=== PATIENT | male | born 1990 | race African-American/Black ===

== ENCOUNTER 2020-02-14 06:26 | Emergency (ER) | payer BC ==
[2020-02-14 07:11] LABS: ABSOLUTE EOSINOPHILS # (AUTO) 0.1 10^3/uL (0.0-0.6); ABSOLUTE LYMPHOCYTES (AUTO) 2.9 10^3/uL (0.5-4.7); ABSOLUTE MONOCYTES (AUTO) 0.4 10^3/uL (0.1-1.4); ABSOLUTE NEUT (AUTO) 1.4 10^3/uL (1.7-8.2); BASOPHILS % (AUTO) 0.8 % (0-2); EOSINOPHILS % (AUTO) 2.7 % (0-6); HEMATOCRIT 43.7 % (37.9-51.0); HEMOGLOBIN 14.9 g/dL (13.5-17.0); LYMPHOCYTES % (AUTO) 60.2 % (13-45); MEAN CORPUSCULAR HEMOGLOBIN 31.4 pg (27.0-33.4); MEAN CORPUSCULAR HGB CONC 34.2 g/dL (32.0-36.0); MEAN CORPUSCULAR VOLUME 92 fl (80-97); PLATELET COUNT 166 10^3/uL (150-450); RED BLOOD COUNT 4.76 10^6/uL (4.35-5.55); RED CELL DISTRIBUTION WIDTH 13.3 % (11.5-14.0); SEGMENTED NEUTROPHILS % (AUTO) 28.3 % (42-78); TOTAL CELLS COUNTED % (AUTO) 100 %; WHITE BLOOD COUNT 4.8 10^3/uL (4.0-10.5)
[2020-02-14 07:19] LABS: APPEARANCE,URINE CLEAR; BILIRUBIN,URINE NEGATIVE (NEGATIVE); COLOR,URINE YELLOW; GLUCOSE, URINE NEGATIVE (NEGATIVE); KETONES,URINE TRACE mg/dL (NEGATIVE); LEUKOCYTE ESTERASE,URINE NEGATIVE (NEGATIVE); NITRITE,URINE NEGATIVE (NEGATIVE); PROTEIN,URINE NEGATIVE (NEGATIVE); URINE SPECIFIC GRAVITY 1.031
[2020-02-14 07:34] LABS: ALBUMIN 4.4 g/dL (3.5-5.0); ALKALINE PHOSPHATASE 94 U/L (38-126); ANION GAP 6 (5-19); ASPARTATE AMINO TRANSFERASE 21 U/L (17-59); BILIRUBIN,TOTAL 0.5 mg/dL (0.2-1.3); BLOOD UREA NITROGEN 14 mg/dL (7-20); CALCIUM 9.6 mg/dL (8.4-10.2); CARBON DIOXIDE 27 mmol/L (22-30); CHLORIDE 106 mmol/L (98-107); GLUCOSE 104 mg/dL (75-110); POTASSIUM 3.9 mmol/L (3.6-5.0); TOTAL PROTEIN 7.1 g/dL (6.3-8.2)
[2020-02-14] MEDS ORDERED: KETOROLAC TROMETHAMINE INJ/PF 30 MG/1 ML SDV IV ONE (08:21)
--- NOTE | 2020-02-14 08:36 | ER Document Report ---
ED GI/ - General Chief Complaint: Back Pain Stated Complaint: FLANK PAIN Time Seen by Provider: 02/14/20 08:07 Notes: Patient is a 29-year-old male presents emergency department with a chief complaint of right flank pain. Patient reports he has had a gradual onset of right flank pain for 2 days. Patient reports intermittent in nature. Patient denies urinary symptoms, nausea, vomiting, diarrhea, fever or abdominal pain. Patient states he does not have any trouble urinating and does not have any urinary symptoms. Patient reports he does have a history of a kidney stone years ago and that the pain feels very similar. Patient denies recent injury or fall. Patient reports the right flank pain is worse when taking a deep breath. Denies cough, runny nose or ear pain. - Related Data Allergies/Adverse Reactions: No Known Allergies Allergy (Unverified 02/14/20 06:37) Past Medical History - General Information source: Patient - Social History Smoking Status: Current Every Day Smoker Chew tobacco use (# tins/day): No Frequency of alcohol use: None Drug Abuse: None Lives with: Family Family History: None - Past Medical History Cardiac Medical History: Reports: None Pulmonary Medical History: Reports: None EENT Medical History: Reports: None Neurological Medical History: Reports: None Endocrine Medical History: Reports: None Renal/ Medical History: Reports: Hx Kidney Stones Malignancy Medical History: Reports None GI Medical History: Reports: None Musculoskeletal Medical History: Reports None Skin Medical History: Reports None Psychiatric Medical History: Reports: None Traumatic Medical History: Reports: None Infectious Medical History: Reports: None Surgical Hx: Negative Review of Systems - Review of Systems Constitutional: No symptoms reported EENT: No symptoms reported Cardiovascular: No symptoms reported Respiratory: No symptoms reported Gastrointestinal: No symptoms reported Genitourinary: See HPI Male Genitourinary: No symptoms reported Musculoskeletal: No symptoms reported Skin: No symptoms reported Hematologic/Lymphatic: No symptoms reported Neurological/Psychological: No symptoms reported Physical Exam - Vital signs Vitals: Temp Pulse Resp BP Pulse Ox 97.6 F 63 18 118/76 100 02/14/20 06:39 02/14/20 06:39 02/14/20 06:39 02/14/20 06:39 02/14/20 06:39 Interpretation: Normal - Notes Notes: GENERAL: Well-appearing, well-nourished and in no acute distress. HEAD: Atraumatic, normocephalic. EYES: Pupils equal round and reactive to light, extraocular movements intact, sclera anicteric, conjunctiva are normal. ENT: Nares patent, oropharynx clear without exudates. Moist mucous membranes. NECK: Normal range of motion, supple without lymphadenopathy or JVD. LUNGS: Breath sounds clear to auscultation bilaterally and equal. No wheezes rales or rhonchi. HEART: Regular rate and rhythm without murmurs, rubs or gallops. ABDOMEN: Soft, nontender, normoactive bowel sounds. No guarding, no rebound. No masses appreciated. BACK: No cervical, thoracic, lumbar midline tenderness. No saddle anesthesia, normal distal neurovascular exam. Right CVA tenderness. GENITOURINARY: Deferred. EXTREMITIES: Normal range of motion, no pitting or edema. No clubbing or cyanosis. NEUROLOGICAL: Cranial nerves II through XII grossly intact. Normal speech, normal gait. PSYCH: Normal mood, normal affect. SKIN: Warm, Dry, normal turgor, no rashes or lesions noted. Course - Re-evaluation Re-evalutation: 02/14/20 08:36 Patient is nontoxic-appearing. Patient resting comfortably on stretcher. Patient complains of right flank pain that is intermittent in nature. Patient reports he does have a history of kidney stones and that this feels the same. Will order a CT scan. Lab work was unremarkable, patient does not have a urin mariajose tract infection or alteration electrolytes. Will give patient IV Toradol. Patient's not tachycardic, hypotensive or febrile. 02/14/20 09:33 CT scan revealed a 2 mm left lower calyx stone in the kidney. Patient's pain is primarily on the right. Patient does not have any signs of urinary tract infection at this time. Patient reports the Toradol did help with his discomfort and patient is nontoxic-appearing and in no acute distress currently. Patient continues to deny abdominal pain. We will continue NSAIDs at home, rest, patient was given strict return precautions. - Vital Signs Vital signs: Temp Pulse Resp BP Pulse Ox 97.6 F 63 18 118/76 100 02/14/20 06:39 02/14/20 06:39 02/14/20 06:39 02/14/20 06:39 06/22/20 06:39 - Laboratory Result Diagrams: 02/14/20 06:47 02/14/20 06:47 Laboratory results interpreted by me: 02/14/20 02/14/20 06:47 06:47 Lymph % (Auto) 60.2 H Absolute Neuts (auto) 1.4 L Seg Neutrophils % 28.3 L Urine Ketones TRACE H Urine Urobilinogen 4.0 H Urine Ascorbic Acid 40 H 02/14/20 09:33 Patient does not have leukocytosis, anemia or alteration electrolytes. Kidney function is normal. Patient does not have leukocytes or nitrates in the urine. Negative for blood in urine. Laboratory 02/14/20 02/14/20 02/14/20 06:47 06:47 06:47 WBC 4.8 RBC 4.76 Hgb 14.9 Hct 43.7 MCV 92 MCH 31.4 MCHC 34.2 RDW 13.3 Plt Count 166 Lymph % (Auto) 60.2 H Norton % (Auto) 8.0 Eos % (Auto) 2.7 Baso % (Auto) 0.8 Absolute Neuts (auto) 1.4 L Absolute Lymphs (auto) 2.9 Absolute Monos (auto) 0.4 Absolute Eos (auto) 0.1 Absolute Basos (auto) 0.0 Seg Neutrophils % 28.3 L Sodium 138.8 Potassium 3.9 Chloride 106 Carbon Dioxide 27 Anion Gap 6 BUN 14 Creatinine 1.02 Est GFR ( Amer) > 60 Est GFR (MDRD) Non-Af > 60 Glucose 104 Calcium 9.6 Total Bilirubin 0.5 Direct Bilirubin 0.0 Neonat Total Bilirubin Not Reportable Neonat Direct Bilirubin Not Reportable Neonat Indirect Bili Not Reportable AST 21 ALT 13 Alkaline Phosphatase 94 Total Protein 7.1 Albumin 4.4 Urine Color YELLOW Urine Appearance CLEAR Urine pH 5.0 Ur Specific Hammond 1.031 Urine Protein NEGATIVE Urine Glucose (UA) NEGATIVE Urine Ketones TRACE H Urine Blood NEGATIVE Urine Nitrite NEGATIVE Urine Bilirubin NEGATIVE Urine Urobilinogen 4.0 H Ur Leukocyte Esterase NEGATIVE Urine WBC (Auto) 2 Urine RBC (Auto) 1 U Hyaline Cast (Auto) 1 Squamous Epi Cells Auto <1 Urine Mucus (Auto) MANY Urine Ascorbic Acid 40 H - Diagnostic Test Radiology reviewed: Reports reviewed Radiology results interpreted by me: 02/14/20 09:33 Abdomen/Pelvis CT 02/14/20 08:20 IMPRESSION: No acute intra-abdominal abnormality. Discharge - Discharge Clinical Impression: Right flank pain, Left renal stone Condition: Stable Disposition: HOME, SELF-CARE Additional Instructions: *Today you were seen emergency department for right flank pain, this is right mid back pain. We did do a CAT scan which showed a small kidney stone on the left. The stone was not located in the ureter which is the tube that connects the kidney to the bladder. I am prescribing you an anti-inflammatory called Toradol. Take this as needed for pain. Please rest and drink plenty fluids over the next few days. *Please return the emergency department if your symptoms worsen or change to include fever, difficulty urinating, blood in the urine, vomiting, abdominal pain or chest pain. KIDNEY STONE: You are passing or have passed a kidney stone. These stones are usually due to increased calcium or uric acid concentrations in your urine. Stones within the kidney itself are not painful. The pain occurs as the stone leaves the kidney to pass down the long tube, called the ureter, leading to the bladde r. If the stone is small, it will usually pass by itself. Most patients can pass the stone at home. You will usually receive medications for pain, nausea or vomiting, and sometimes a medication to assist in passing the kidney stone. However, if the pain is very severe or if vomiting prevents you from taking oral pain medications, you may need to return for further treatment. Drink three or four quarts of fluids per day. You will be given pain medication (if needed) and urine strainers. Strain all your urine to see if the stone passes. If your doctor has asked you to bring the stone in for analysis, return with the stone once it has passed. Return if pain or vomiting become severe, if you develop a high fever, if you are unable to pass your urine, or if other unusual symptoms occur. TORADOL INJECTION: You have been given an injection of ketorolac tromethamine (Toradol). This is an excellent, safe drug for pain control. It also has potent antiinflammatory action. You should have significant pain relief within about one hour. Toradol is not addicting and is non-sedating. It does not interfere with driving or work. Call or return if you develop itching, hives, shortness of breath, or rash. Prescriptions: Ketorolac Tromethamine [Toradol 10 mg Tablet] 10 mg PO Q8HP PRN #15 tablet PRN Reason: Forms: Return to Work Referrals: [facility] [Provider Group] - Follow up as needed PADMA FARNSWORTH MD [NO LOCAL MD] - Follow up as needed
--- NOTE | 2020-02-14 09:02 | RADIOLOGY REPORT (SQ) ---
EXAM DESCRIPTION: CT ABD/PELVIS NO ORAL OR IV IMAGES COMPLETED DATE/TIME: 02/14/2020 8:33 am REASON FOR STUDY: right flank, r/o kidney stone COMPARISON: None. TECHNIQUE: CT scan of the abdomen and pelvis performed without intravenous or oral contrast. Images reviewed with lung, soft tissue, and bone windows. Reconstructed coronal and sagittal MPR images revi ewed. All images stored on PACS. All CT scanners at this facility use dose modulation, iterative reconstruction, and/or weight based d osing when appropriate to reduce radiation dose to as low as reasonably achievable (ALARA). [facility]: Dose Right [facility]: CareDose [facility]: Dose Right [facility]: Teradose 4D [facility]: Smart Compression Kinetics RADIATION DOSE: CT Rad equipment meets quality standard of care and radiation dose reduction techniq ues were employed. CTDIvol: 5.3 mGy. DLP: 288 mGy-cm. LIMITATIONS: None. FINDINGS: LOWER CHEST: No significant findings. No nodules or infiltrates. NON-CONTRASTED LIVER, SPLEEN, ADRENALS: Evaluation is limited due to the absence of intravenous contr ast. There is no evidence of hepatic steatosis. The spleen is normal in size. There is no adrenal mass. PANCREAS: No acute gross abnormality of the pancreas. GALLBLADDER: No abnormality that is apparent on CT. RIGHT KIDNEY AND URETER evaluation is limited due to the absence of intravenous contrast. There is n o hydronephrosis, nephrolithiasis, hydroureter or ureterolithiasis. LEFT KIDNEY AND URETER: Evaluation is limited due to the absence of intravenous contrast. There is a 3 mm calculus within a lower pole calyx. There is no associated hydronephrosis, hydroureter or uret erolithiasis. AORTA AND RETROPERITONEUM: No aneurysm of the abdominal aorta. There is no retroperitoneal adenopath y, hemorrhage or mass. BOWEL AND PERITONEAL CAVITY: No bowel obstruction, bowel wall thickening or pericolonic/ perienteric inflammation. No mesenteric adenopathy, free intraperitoneal fluid or mesenteric/ omental inflammati on. APPENDIX: Normal. PELVIS, BLADDER, AND ABDOMINAL WALL:The urinary bladder is contracted. The prostate gland is normal in size. There is no abdominal wall mass or hernia. BONES: No fracture. OTHER: No other finding. IMPRESSION: No acute intra-abdominal abnormality. COMMENT: Quality ID # [id number]: Final reports with documentation of one or more dose reduction techniques (e.g., Automated exposure control, adjustment of the mA and/or kV according to patient size, use of iterative reconstruction technique) TECHNICAL DOCUMENTATION: JOB ID: [id number] 2010 [employer]- All Rights Reserved Reading location - IP/workstation name: [email or web address]
[2020-02-14 09:57] VITALS: BP 106/52
== END 2020-02-14 09:58 | disposition home or self-care (01) ==
LOC: ER 06:26
DX: N20.0 Calculus of kidney (principal); M54.9 Dorsalgia, unspecified; R10.9 Unspecified abdominal pain; F17.200 Nicotine dependence, unspecified, uncomplicated; Z87.442 Personal history of urinary calculi
CPT/HCPCS: 99284; 96374; 36415; 85025; 80053; 81001; 74176; J1885

== ENCOUNTER 2020-03-06 07:50 | Emergency (ER) | payer BC ==
[2020-03-06 08:29] VITALS: BP 118/78
--- NOTE | 2020-03-06 09:31 | ER Document Report ---
ED ENT - General Chief Complaint: Sore Throat Stated Complaint: SORE THROAT Time Seen by Provider: 03/06/20 09:07 Primary Care Provider: DANNI CHRISTIANSON MD [COMMUNITY BASED STAFF] - Follow up as needed Mode of Arrival: Ambulatory Information source: Patient Notes: 29-year-old male with no previous medical problems presents to the emergency room complaining of a sore throat that started yesterday. He denies any fevers. No ill contacts. Not taking any medications for symptoms. Denies any travel in the last 14 days. No known COVID-19 exposure. States is eating and drinking normally without any difficulty. TRAVEL OUTSIDE OF THE [place] IN LAST 30 DAYS: No - Related Data Allergies/Adverse Reactions: No Known Allergies Allergy (Unverified 02/14/20 06:37) Past Medical History - General Information source: Patient - Social History Smoking Status: Current Every Day Smoker Frequency of alcohol use: None Drug Abuse: None Family History: None Renal/ Medical History: Reports: Hx Kidney Stones Review of Systems - Review of Systems Constitutional: No symptoms reported EENT: Throat pain Cardiovascular: No symptoms reported Respiratory: No symptoms reported Musculoskeletal: No symptoms reported Neurological/Psychological: No symptoms reported -: Yes All other systems reviewed and negative Physical Exam - Vital signs Vitals: Temp Pulse Resp BP Pulse Ox 97.9 F 77 16 118/78 97 03/06/20 08:22 03/06/20 08:22 03/06/20 08:22 03/06/20 08:22 03/06/20 08:22 - Notes Notes: VITAL SIGNS: Within normal limits. GENERAL: Mild acute distress, non-toxic appearance. HEAD: Normal with no signs of head trauma. EYES: PERRLA, EOMI, conjunctiva normal, no discharge. EARS: Hearing grossly intact. NOSE: Normal. THROAT: Oropharynx is normal. No pharyngeal erythema, no exudate. No tonsillar enlargement. NECK: Normal range of motion, no tenderness, supple, no lymphadenopathy, No adenopathy, no JVD. Negative Meningismus, Negative brudzzinski, Negative Kernig's CHEST: Clear breath sounds bilaterally. No wheezes, rales, or rhonchi. CARDIAC: Regular rate and rhythm. S1 and S2, without murmurs, gallops, or rubs. VASCULAR: No Edema. Peripheral pulses normal and equal in all extremities. ABDOMEN: Normal and soft with no tenderness, no masses or pulsatile masses. GASTROINTESTINAL: Bowel sounds normal GENITOURINARY: Normal, No tenderness LYMPATHTIC: No lymphadenopathy noted. MUSCULOSKELETAL: Good range of motion of all major joints. Extremities without clubbing, cyanosis or edema. NEUROLOGICAL: Alert and oriented x 3. No focal sensory or strength deficits. Speech normal. Follows commands appropriately. PSYCHIATRIC: Normal Affect, judgement and mood. SKIN: Normal appearance with no rashes or lesions. Course - Re-evaluation Re-evalutation: 03/06/20 09:27 Patient is afebrile, nontoxic-appearing, able to tolerate p.o. fluids. Reviewed negative strep results with patient. Aware he will be notified if his throat culture comes back positive. Counseled on supportive therapy. Outpatient follow-up with a primary care physician if not improving in 2 to 3 days. On- call physician was provided. Patient was given strict return to the emergency room guidelines. Return for any new or worsening symptoms. All questions were answered. Patient verbalized understanding and agrees with plan of care. - Vital Signs Vital signs: Temp Pulse Resp BP Pulse Ox 97.9 F 77 16 118/78 97 03/06/20 08:22 03/06/20 08:22 03/06/20 08:22 03/06/20 08:22 03/06/20 08:22 Discharge - Discharge Clinical Impression: Acute pharyngitis Qualifiers: Pharyngitis/tonsillitis etiology: unspecified etiology Qualified Code(s): J02.9 - Acute pharyngitis, unspecified Condition: Stable Disposition: HOME, SELF-CARE Instructions: Sore Throat ([facility]) Additional Instructions: Your strep test is negative. Your symptoms are likely due to an viral infection and will resolve in the next 1-2 weeks. You have also been given a dose of steroids to help with your throat discomfort. Please continue to take ibuprofen 600 mg every 6 hours or Tylenol 1000 mg every 6 hours as needed for throat discomfort. You can also gargle with salt water. Continue to drink plenty of fluids. Follow-up with a primary care doctor in the next several days. Return if you become unable to swallow, have difficulty breathing, pass out, have persistent vomiting that prevents you from being able to tolerate fluids, or have any other symptoms that are concerning to you. Forms: Return to Work Referrals: DANNI CHRISTIANSON MD [COMMUNITY BASED STAFF] - Follow up as needed
== END 2020-03-06 09:38 | disposition home or self-care (01) ==
LOC: ER 07:50
DX: J02.9 Acute pharyngitis, unspecified (principal); F17.200 Nicotine dependence, unspecified, uncomplicated
CPT/HCPCS: 87070; 87077; 87880; 99283